=== PATIENT | female | born 1960 | race Caucasian/White ===

== ENCOUNTER → 2023-09-21 15:09 | Outpatient (REF) | payer BC, SELFPAY | LOC: WDC 15:09 | PROVIDERS: ATTENDING PHYSICIAN Obstetrics & Gynecology; FAMILY PHYSICIAN Internal Medicine | DX: Z12.31 Encounter for screening mammogram for malignant neoplasm of breast (principal) | CPT/HCPCS: 77063; 77067 ==

== ENCOUNTER → 2024-09-26 08:11 | Outpatient (REF) | payer MEDICARE, OTHER, SELFPAY | LOC: WDC 08:11 | PROVIDERS: ATTENDING PHYSICIAN Obstetrics & Gynecology; FAMILY PHYSICIAN Internal Medicine | DX: Z12.31 Encounter for screening mammogram for malignant neoplasm of breast (principal) | CPT/HCPCS: 77063; 77067 ==